=== PATIENT | female | born 2000 | race African-American/Black ===

== ENCOUNTER 2019-05-30 12:47 | Emergency (ER) | payer OTHER, SELFPAY ==
[2019-05-30 12:53] VITALS: BP 117/73; PULSE 118; RESP 18; TEMP 37.1; O2SAT 100
--- NOTE | 2019-05-30 13:11 | ED.URI ---
HPI - URI/Sore Throat General Chief Complaint: Upper Respiratory Infection <MIKEL Guevara Last Filed: 05/30/19 13:56> Stated Complaint: tonsilitis <MIKEL Guevara Last Filed: 05/30/19 13:56> Time Seen by Provider: 05/30/19 12:59 <MIKEL Guevara Last Filed: 05/30/19 13:56> Source: patient <MIKEL Guevara Last Filed: 05/30/19 13:56> Mode of arrival: ambulatory <MIKEL Guevara Last Filed: 05/30/19 13:56> Limitations: no limitations <MIKEL Guevara Last Filed: 05/30/19 13:56> History of Present Illness HPI Narrative: Pt is a 19 y/o female who presents to the ED with c/o sore throat for 2 days. She states that she went to the yesterday and was Rx Amoxicillin, but she came to the ED today for worsening swelling. Pt denies rhinorrhea, otalgia, cough, or N/V/D. She is not or breast feeding and she denies having any allergies. <MIKEL Guevara Last Filed: 05/30/19 13:56> MD elicited complaint: sore throat <MIKEL Guevara Last Filed: 05/30/19 13:56> Onset (ago): day(s) (2) <MIKEL Guevara Last Filed: 05/30/19 13:56> Consistency: progressively worsening <MIKEL Guevara Last Filed: 05/30/19 13:56> Associated symptoms: denies other symptoms <MIKEL Guevara Last Filed: 05/30/19 13:56> Treatments prior to arrival: antibiotics (Amoxicillin) <MIKEL Guevara Last Filed: 05/30/19 13:56> Review of Systems Review of Systems: All systems reviewed & are unremarkable except as noted in HPI and below <MIKEL Guevara Last Filed: 05/30/19 13:56> ENT: Denies otalgia, Reports sore throat and Denies other (rhinorrhea) <Hu Gonzales PA-C - Last Filed: 05/30/19 13:56> Respiratory: Respiratory: Denies cough <Hu Gonzales PA-C - Last Filed: 05/30/19 13:56> Gastrointestinal: Gastrointestinal: Denies diarrhea, Denies nausea and Denies vomiting <Hu Gonzales PA-C - Last Filed: 05/30/19 13:56> PMFSH Past Medical History Medical History: Medical History (Updated 05/30/19 @ 13:55 by Hu Gonzales PA-C) No significant past medical history <Hu Gonzales PA-C - Last Filed: 05/30/19 13:56> Surgical History Surgical History: Surgical History (Updated 05/30/19 @ 13:24 by Garth Warren) No significant past surgical history <Hu Gonzales PA-C - Last Filed: 05/30/19 13:56> Social History Social History: Social History (Updated 05/30/19 @ 13:24 by Garth Warren) Smoking status: Never smoker Gender identity (if verbalized by the patient): Female <Hu Gonzales PA-C - Last Filed: 05/30/19 13:56> Exam Narrative: Exam Narrative: GENERAL: Well-appearing, well-nourished, and in no acute distress. HEAD: Normocephalic, atraumatic. EYES: PERRLA and EOMI. ENT: Nares clear, no rhinorrhea or epistaxis. Mucous membranes moist. Oropharynx with erythema and tonsillar hypertrophy and without exudate or other lesions. Bilateral TMs pearly [place] nonbulging. Uvula midline no trismus or drooling NECK: Supple. Anterior adenopathy noted CHEST: Clear to auscultation. No respiratory distress. No wheezes rales or rhonchi HEART: Regular rate and rhythm. No murmur heard. EXTREMITIES: Normal range of motion. No edema. SKIN: Warm, dry, no rash. NEURO: No focal deficits. Alert and oriented x3. PSYCH: Normal mood and affect. <Hu Gonzales PA-C - Last Filed: 05/30/19 13:56> Course Course Emergency Course: Patient already on antibiotics in the room in no distress advised to continue antibiotics <Hu Gonzales PA-C - Last Filed: 05/30/19 13:56> Vital Signs Vital signs: Vital Signs Temperature 98.7 F 05/30/19 12:53 Pulse Rate 118 H 05/30/19 12:53 Respiratory Rate 18 05/30/19 12:53 Blood Pressure 117/73 05/30/19 12:53 Pulse Oximetry 100 05/30/19 12:53 [place]
== END 2019-05-30 14:10 | disposition home or self-care (01) ==
PROVIDERS: Emergency Provider General Practice
DX: J02.0 Streptococcal pharyngitis (principal)
CPT/HCPCS: 99283

== ENCOUNTER 2023-08-03 09:43 | Emergency (ER) | payer OTHER, SELFPAY ==
[2023-08-03 09:54] VITALS: BP 97/63; PULSE 73; RESP 16; TEMP 36.8; O2SAT 100
--- NOTE | 2023-08-03 10:18 | ED.FEMALEGU ---
HPI - Female Genitourinary General Chief complaint: Urogenital-Female Stated complaint: Uti Symptoms Time Seen by Provider: 08/03/23 10:12 Source: patient and RN notes reviewed Mode of arrival: ambulatory Limitations: no limitations History of Present Illness HPI Narrative: Patient presents today with 3 day history of urgency, frequency, dysuria, with decreased urine output. She has taken Tylenol without relief. Related Data Home Medications Medication Instructions Recorded Confirmed etonogestrel 0.12 mg-ethinyl 1 vag ring vaginal DIRECTED 08/03/23 08/03/23 estradiol 0.015 mg/24 hr vaginal ring (NuvaRing) valacyclovir 1 gram tablet 1 mg PO DAILY 08/03/23 08/03/23 Allergies Allergy/AdvReac Type Severity Reaction Status Date / Time No Known Allergies Allergy Verified 08/03/23 10:07 Review of Systems Review of Systems: CONSTITUTIONAL: Denies body aches, fever, chills, or sweats. EYES: Denies visual changes, redness, or discharge. ENT: Denies rhinorrhea, congestion, sore throat, or otalgia. CARDIOVASCULAR: Denies chest pain, palpitations, or edema. RESPIRATORY: Denies cough or dyspnea. GASTROINTESTINAL: Denies abdominal pain, nausea, vomiting, or diarrhea. GENITOURINARY:+ urgency, frequency, dysuria, decreased urine output. SKIN: Denies rash, itching, or wounds. MUSCULOSKELETAL: Denies back pain, joint pain, or myalgia. NEUROLOGIC: Denies headache, numbness, tingling, or weakness. PSYCH: Denies depression or anxiety. [facility] Past Medical History Medical History No significant past medical history Surgical History Surgical History No significant past surgical history Social History Social History Smoking status: Never smoker Gender identity (if verbalized by the patient): Female Comments At time of signature, I have reviewed and agree with nursing past medical, surgical, social and family history unless otherwise noted. Please see nursing chart for further information. There is no relevant family history pertinent to the presenting complaint Exam Narrative: GENERAL: Well-appearing, well-nourished, and in no acute distress. HEAD: Normocephalic, atraumatic. EYES: EOMI. No redness or drainage. Conjunctivae normal. ENT: Mucous membranes pink and moist. NECK: Normal AROM. CHEST: No respiratory distress. Clear to auscultation. HEART: Regular rate and rhythm. No murmur appreciated. ABDOMEN: Soft, nontender, nondistended, normal active bowel sounds.-CVAT EXTREMITIES: Normal range of motion. No edema. SKIN: Warm, dry, no rash. Capillary refill normal. NEURO: No focal deficits. Alert and oriented x3. Gait steady. PSYCH: Normal affect. No signs of depression or anxiety. Course Course Level of Care: Express Care Visit Vital Signs Vital signs: Vital Signs Temperature 98.3 F 08/03/23 09:54 Pulse Rate 73 08/03/23 09:54 Respiratory Rate 16 08/03/23 09:54 Blood Pressure 97/63 L 08/03/23 09:54 Pulse Oximetry 100 08/03/23 09:54 Oxygen Delivery Room Air 08/03/23 09:54 Temperature 98.3 F 08/03/23 09:54 Pulse Rate 73 08/03/23 09:54 Respiratory Rate 16 08/03/23 09:54 Blood Pressure 97/63 L 08/03/23 09:54 Pulse Oximetry 100 08/03/23 09:54 Oxygen Delivery Room Air 08/03/23 09:54 Reviewed MDM - Female Genitourinary MDM Narrative Medical decision making narrative: Based on patient's history and urinalysis, she has been diagnosed with the UTI will be started on Keflex. Culture pending. Anticipatory guidance given. Differential Diagnosis Differential diagnosis: Likely urinary tract infection, vaginitis and cystitis Lab Data Attestation: I reviewed the patient's lab results. Labs: Urine Glucose Negative
== END 2023-08-03 10:27 | disposition home or self-care (01) ==
PROVIDERS: Emergency Provider Nurse Practitioner
DX: N39.0 Urinary tract infection, site not specified (principal); B96.20 Unspecified Escherichia coli [E. coli] as the cause of diseases classified elsewhere
CPT/HCPCS: 81003; 87077; 87086; 87088; 87186; 99213; G0463